=== PATIENT | female | born 1995 | race Asian ===

== ENCOUNTER 2017-08-17 13:11 | Emergency (ER) | payer MEDICAID ==
--- NOTE | 2017-08-17 13:23 | ED Physician Chart ---
ED Chief Complaint/HPI - Patient Information Date Seen:: 08/17/17 Time Seen:: 13:19 Chief Complaint:: Chest tightness and wheeze History of Present Illness:: 22 yo female developed chest tightness, palpitation, lightheadedness, numbness and tingling of bilateral hands, pale toes when she was dancing for 10 minutes yesterday. She denied any fever or chills. Patient had irregular pulses. Patient reported some stress as her final exams will be next week and she had been practicing dancing a lot for her trip to [facility] next month. Patient reported heavy menstrual periods. Allergies:: Allergies Allergy/AdvReac Type Severity Reaction Status Date / Time No Known Allergies Allergy Verified 08/17/17 13:18 ED Review of Systems - Review of Systems General/Constitutional: No fever, No chills Skin: No bruising Head: No headache, Light headed Eyes: No pain ENT: No sore throat Neck: No neck pain Cardio Vascular: Chest pain (right) Pulmonary: SOB, No cough GI: No nausea, No vomiting, No diarrhea Musculoskeletal: No bone or joint pain Neurological: No focal symptoms ED Past Medical History - Past Medical History Past Medical History: No significant medical hx Social History: Non Smoker, Alcohol, No Drug Use Surgical History: None Family Medical History - Family Member Grandfather Hx Family Coronary Artery Disease: Yes (Paternal grandfather) ED Physical Exam - Physical Examination General/Constitutional: Awake, Alert Head: Atraumatic Eyes: PERRL Skin: No skin lesions ENMT: Nasal exam nl Neck: No nuchal rigidity Respiratory: Clear to Auscultation Cardio Vascular: No murmur, gallop, rubs, NL S1 S2 Other Cardio Vascular comments:: IRR GI: No tenderness/rebounding/guarding Extremities: normal strength in all extremities Neuro/Psych: No focal deficits ED Labs/Radiology/EKG Results - Lab Results Results: Laboratory Last Values WBC 6.5 Th/cmm (4.8-10.8) 08/17/17 13:40 RBC 4.31 Mil/cmm (3.80-5.10) 08/17/17 13:40 Hgb 13.6 gm/dL (12-16) 08/17/17 13:40 Hct 40.3 % (41.0-60) L 08/17/17 13:40 MCV 93.6 fl (81-100) 08/17/17 13:40 MCH 31.7 pg (27.0-31.0) H 08/17/17 13:40 MCHC Differential 33.9 pg (28.0-36.0) 08/17/17 13:40 RDW 11.3 % (11.5-20.0) L 08/17/17 13:40 Plt Count 283 Th/cmm (150-400) 08/17/17 13:40 MPV 7.4 fl 08/17/17 13:40 Neutrophils % 66.0 % (40.0-80.0) 08/17/17 13:40 Lymphocytes % 27.0 % (20.0-50.0) 08/17/17 13:40 Monocytes % 5.9 % (2.0-10.0) 08/17/17 13:40 Eosinophils % 0.5 % (0.0-5.0) 08/17/17 13:40 Basophils % 0.6 % (0.0-2.0) 08/17/17 13:40 PT 11.2 SECONDS (9.5-11.5) 08/17/17 13:40 INR 1.08 (0.5-1.4) 08/17/17 13:40 PTT (Actin FS) 30.1 SECONDS (26.0-38.0) 08/17/17 13:40 Sodium 135 mEq/L (136-145) L 08/17/17 13:40 Potassium 3.7 mEq/L (3.5-5.1) 08/17/17 13:40 Chloride 104 mEq/L (98-107) 08/17/17 13:40 Carbon Dioxide 24.7 mEq/L (21.0-31.0) 08/17/17 13:40 Anion Gap 10.0 (7.0-16.0) 08/17/17 13:40 BUN 10 mg/dL (7-25) 08/17/17 13:40 Creatinine 0.7 mg/dL (0.6-1.2) 08/17/17 13:40 Est GFR ( Amer) > 60.0 ml/min (>90) 08/17/17 13:40 Est GFR (Non-Af Amer) > 60.0 ml/min 08/17/17 13:40 BUN/Creatinine Ratio 14.3 08/17/17 13:40 Glucose 92 mg/dL (70-105) 08/17/17 13:40 Calcium 9.2 mg/dL (8.6-10.3) 08/17/17 13:40 Total Bilirubin 0.5 mg/dL (0.3-1.0) 08/17/17 13:40 AST 16 U/L (13-39) 08/17/17 13:40 ALT 9 U/L (7-52) 08/17/17 13:40 Alkaline Phosphatase 45 U/L (34-104) 08/17/17 13:40 Troponin I < 0.01 ng/mL (0.01-0.05) L 08/17/17 13:40 B-Natriuretic Peptide 9.1 pg/mL (5.0-100.0) 08/17/17 13:40 Total Protein 7.2 gm/dL (6.0-8.3) 08/17/17 13:40 Albumin 4.4 gm/dL (3.7-5.3) 08/17/17 13:40 Globulin 2.8 gm/dL 08/17/17 13:40 Albumin/Globulin Ratio 1.6 (1.0-1.8) 08/17/17 13:40 Triglycerides 36 mg/dL (<150) 08/17/17 13:40 Cholesterol 124 mg/dL (<200) 08/17/17 13:40 LDL Cholesterol Direct 54 mg/dL (75-193) L 08/17/17 13:40 HDL Cholesterol 62 mg/dL (23-92) 08/17/17 13:40 TSH 0.66 uIU/ml (0.34-5.60) 08/17/17 13:40 Urine Source RANDOM 08/17/17 13:45 Urine Color YELLOW 08/17/17 13:45 Urine Clarity SLIGHT CLOUDY (CLEAR) H 08/17/17 13:45 Urine pH 7.0 (4.6 - 8.0) 08/17/17 13:45 Ur Specific [place] 1.015 (1.005-1.030) 08/17/17 13:45 Urine Protein NEGATIVE mg/dL (NEGATIVE) 08/17/17 13:45 Urine Glucose (UA) NEGATIVE mg/dL (NEGATIVE) 08/17/17 13:45 Urine Ketones NEGATIVE mg/dL (NEGATIVE) 08/17/17 13:45 Urine Blood NEGATIVE (NEGATIVE) 08/17/17 13:45 Urine Nitrate NEGATIVE (NEGATIVE) 08/17/17 13:45 Urine Bilirubin NEGATIVE (NEGATIVE) 08/17/17 13:45 Urine Urobilinogen 0.2 E.U./dL (0.2 - 1.0) 08/17/17 13:45 Ur Leukocyte Esterase MODERATE (NEGATIVE) H 08/17/17 13:45 Urine RBC 0-2 /hpf (0-5) 08/17/17 13:45 Urine WBC 6-10 /hpf (0-5) H 08/17/17 13:45 Ur Epithelial Cells MODERATE /lpf (FEW) 08/17/17 13:45 Urine Bacteria OCCASIONAL /hpf (NONE SEEN) 08/17/17 13:45 POC Ur Test Negative 08/17/17 13:43 Urine Opiates Screen NEGATIVE (NEGATIVE) 08/17/17 13:45 Urine Methadone Screen NEGATIVE (NEGATIVE) 08/17/17 13:45 Ur Barbiturates Screen NEGATIVE (NEGATIVE) 08/17/17 13:45 Ur Tricyclics Screen NEGATIVE (NEGATIVE) 08/17/17 13:45 Ur Phencyclidine Scrn NEGATIVE (NEGATIVE) 08/17/17 13:45 Amphetamines Screen NEGATIVE (NEGATIVE) 08/17/17 13:45 U Methamphetamines Scrn NEGATIVE (NEGATIVE) 08/17/17 13:45 U Benzodiazepines Scrn NEGATIVE (NEGATIVE) 08/17/17 13:45 U Cocaine Metab Screen NEGATIVE (NEGATIVE) 08/17/17 13:45 U Cannabinoids Screen NEGATIVE (NEGATIVE) 08/17/17 13:45 - Radiology Results Results: CXR: no acute abnormalities - EKG Interpretations EKG Time:: 13:26 Rate & Rhythm: 80bpm, sinus rhythm [place]: normal P axis Intervals: W[place] 156, QRSD 83, QT 403, QTc 465 Comments:: Trigeminy string > 6 w/ V complexes ED Assessment - Assessment General Assessment: Chest pain Abnormal EKG: Trigeminy UTI Mild hyponatremia Assessment/Comments:: CBC, CMP, Trop I, BNP, lipid panel, TSH UA, urine drug screening CXR, EKG DuoNeb breathing treatment, with some relief of chest tightness Bactrim DS PO D/c home per patient's request F/u PCP and claims investigator, return to ER if symptoms worsen ED Septic Shock - . Is Septic Shock (SBP<90, OR Lactate>4 mmol\L) present?: No ED Reassessment (Disposition) - Reassessment Reassessment Condition:: Improved - Patient Disposition Discharge/Transfer:: Home ED Discharge Plan - Patient Disposition Admit/Discharge/Transfer: PT DISCHARGED HOME Condition at Disposition: Stable Instructions: Urinary Tract Infection, [id number] Additional Instructions: Follow up with PCP and Shoe Sprayer in 24-48 hours. Return to ED if condition worsens.
[2017-08-17] MEDS ORDERED: Albuterol/Ipratropium Neb 3 ML AERS HHN ONE ×2 (13:28→13:29)
[2017-08-17 13:49] LABS: % BASOPHILS 0.6 % (0.0-2.0); % EOSINOPHILS 0.5 % (0.0-5.0); % MONOCYTES 5.9 % (2.0-10.0); HEMATOCRIT 40.3 % (41.0-60); HEMOGLOBIN 13.6 gm/dL (12-16); LYMPHOCYTE ABSOLUTE 1.8 Th/cmm (1.5-3.0); MEAN CELL VOLUME 93.6 fl (81-100); MEAN CORPUSCULAR HEMOGLOBIN 31.7 pg (27.0-31.0); MEAN CORPUSCULAR HGB CONC 33.9 pg (28.0-36.0); MEAN PLATELET VOLUME 7.4 fl; MONOCYTE ABSOLUTE 0.4 Th/cmm (0.3-1.0); NEUTROPHILE ABSOLUTE 4.3 Th/cmm (1.8-8.0); PLATELET COUNT 283 Th/cmm (150-400); RED BLOOD COUNT 4.31 Mil/cmm (3.80-5.10); RED CELL DISTRIBUTION WIDTH 11.3 % (11.5-20.0); WHITE BLOOD COUNT 6.5 Th/cmm (4.8-10.8)
[2017-08-17 13:51] LABS: URINE MICROSCOPIC INDICATED? YES; URINE SOURCE RANDOM
[2017-08-17 13:57] LABS: URINE BILIRUBIN NEGATIVE (NEGATIVE); URINE BLOOD NEGATIVE (NEGATIVE); URINE GLUCOSE (UA) NEGATIVE (NEGATIVE); URINE KETONE NEGATIVE (NEGATIVE); URINE LEUKOCYTE ESTERASE MODERATE (NEGATIVE); URINE NITRATE NEGATIVE (NEGATIVE); URINE PROTEIN NEGATIVE (NEGATIVE); URINE UROBILINOGEN 0.2 E.U./dL (0.2 - 1.0)
[2017-08-17 14:04] LABS: INR 1.08 (0.5-1.4); PROTHROMBIN TIME (TEST) 11.2 SECONDS (9.5-11.5)
[2017-08-17 14:09] LABS: URINE CLARITY SLIGHT CLOUDY (CLEAR); URINE COLOR YELLOW
[2017-08-17 14:10] LABS: URINE BACTERIA OCCASIONAL /hpf (NONE SEEN); URINE EPITHELIAL CELLS MODERATE /lpf (FEW); URINE RBC 0-2 /hpf (0-5)
--- NOTE | 2017-08-17 14:13 | Diagnostic Imaging Report ---
CHEST X-RAY: AP view INDICATION: pain COMPARISON: None FINDINGS: There is no focal consolidation or pleural effusions The heart is normal in size. The osseous structures demonstrate no acute abnormalities. IMPRESSION: No acute cardiopulmonary disease.
[2017-08-17 14:15] LABS: ALB/GLOB RATIO 1.6 (1.0-1.8); ALBUMIN 4.4 gm/dL (3.7-5.3); ALKALINE PHOSPHATASE 45 U/L (34-104); BILIRUBIN,TOTAL 0.5 mg/dL (0.3-1.0); BUN - UREA NITROGEN 10 mg/dL (7-25); CALCIUM SERUM 9.2 mg/dL (8.6-10.3); CARBON DIOXIDE 24.7 mEq/L (21.0-31.0); CHLORIDE 104 mEq/L (98-107); CHOLESTEROL 124 mg/dL (<200); CREATININE - SERUM 0.7 mg/dL (0.6-1.2); GFR AFRICAN-AMERICAN > 60.0 ml/min (>90); GFR NON AFRICAN-AMERICAN > 60.0 ml/min; GLUCOSE 92 mg/dL (70-105); HDL -HIGH DENSITY LIPOPROTEIN 62 mg/dL (23-92); POTASSIUM SERUM 3.7 mEq/L (3.5-5.1); SGOT 16 U/L (13-39); SGPT/ALT 9 U/L (7-52); SODIUM SERUM 135 mEq/L (136-145); TOTAL PROTEIN,SERUM 7.2 gm/dL (6.0-8.3); TRIGLYCERIDES 36 mg/dL (<150)
[2017-08-17 14:38] LABS: AMPHETAMINE URINE NEGATIVE (NEGATIVE); BARBITURATES URINE NEGATIVE (NEGATIVE); BENZODIAZEPINES QUAL URINE NEGATIVE (NEGATIVE); CANNABINOID THC NEGATIVE (NEGATIVE); COCAINE METABOLITE QUAL URINE NEGATIVE (NEGATIVE); METHADONE URINE NEGATIVE (NEGATIVE); METHAMPHETAMINES QUAL URINE NEGATIVE (NEGATIVE); OPIATES (MORPHINE) QUAL. URINE NEGATIVE (NEGATIVE); PHENCYCLIDINE (PCP) URINE NEGATIVE (NEGATIVE); TRICYCLICS (TCA) QUAL. URINE NEGATIVE (NEGATIVE)
[2017-08-17] MEDS ORDERED: Sulfamethoxazole/TMP 800/160mg Tab PO ONE (15:01)
[2017-08-17] MEDS ORDERED: Sulfamethoxazole/TMP 800/160mg Tab ONE (15:02)
[2017-08-17 15:47] LABS: DDIMER QUANT < 100 ng/mL (100-400)
== END 2017-08-17 15:15 | disposition home or self-care (01) ==
LOC: ER 13:11
DX: N39.0 Urinary tract infection, site not specified (principal); E87.1 Hypo-osmolality and hyponatremia; R07.89 Other chest pain
CPT/HCPCS: 36415-UA; 71045-TC; 80053-TC; 80061-TC; 80307; 81001-TC; 81025-TC; 83880-TC; 84443-TC; 84484-TC; 85025-TC; 85379-TC; 85610-TC; 93005; 94640

== ENCOUNTER 2017-08-18 13:10 | Inpatient (IN) | payer MEDICAID ==
--- NOTE | 2017-08-18 13:40 | ED Physician Chart ---
ED Chief Complaint/HPI - Patient Information Date Seen:: 08/18/17 Time Seen:: 13:35 Chief Complaint:: CHEST PAIN History of Present Illness:: THIS IS A 22 YO FEMALE WITH RECURRENT CHEST PAIN ASSOCIATED WITH TIGHTNESS, TINGLE IN HER HANDS AND TOES AND IT HAS CONTINUED SINCE YESTERDAY. 22 yo female developed chest tightness, palpitation, lightheadedness, numbness and tingling of bilateral hands, pale toes when she was dancing for 10 minutes yesterday. She denied any fever or chills. Patient had irregular pulses. Patient reported some stress as her final exams will be next week and she had been practicing dancing a lot for her trip to [facility] next month. Patient reported heavy menstrual periods. SHE HAS A POSITIVE FAMILY HISTORY OF HEART PROBLEMS ON BOTH SIDES OF THE FAMILY. SHE DOES NOT SMOKE, DRINK OR USE DRUGS. SHE DENIES DIABETES, HYPERTENSION AND DENIES ANY PREVIOUS SURGERIES. Allergies:: Allergies Allergy/AdvReac Type Severity Reaction Status Date / Time No Known Allergies Allergy Verified 08/17/17 13:18 Vitals:: Vital Signs - 8 hr 08/18/17 13:30 Temp 97.9 F HR 70 RR 13 BP 112/63 O2 Sat % 100 Historian:: Patient, Family Member (MOTHER) Review:: Nurse's Note Reviewed, Old Chart Reviewed ED Review of Systems - Review of Systems General/Constitutional: No fever, No chills, No weight loss, No weakness, No diaphoresis, No edema, No loss of appetite Skin: No skin lesions, No rash, No bruising Head: No headache, No light-headedness Eyes: No loss of vision, No pain, No diplopia ENT: No earache, No nasal drainage, No sore throat, No tinnitus Neck: No neck pain, No swelling, No thyromegaly, No stiffness, No mass noted Cardio Vascular: Chest pain, Palpitations, No PND, No orthopnea, No edema Pulmonary: No SOB, No cough, No sputum, No wheezing GI: No nausea, No vomiting, No diarrhea, No pain, No melena, No hematochezia, No constipation, No hematemesis G/U: No dysuria, No frequency, No hematuria Musculoskeletal: No bone or joint pain, No back pain, No muscle pain Endocrine: No polyuria, No polydipsia Psychiatric: No prior psych history, No depression, No anxiety, No suicidal ideation Hematopoietic: No bruising, No lymphadenopathy Allergic/Immuno: No urticaria, No angioedema Neurological: No syncope, No focal symptoms, No weakness, No paresthesia, No headache, No seizure, No dizziness, No confusion, No vertigo ED Past Medical History - Past Medical History Obtainable: Yes Past Medical History: No significant medical hx Family History: Heart disease, Diabetes Melitus, HTN Social History: Non Smoker, No Alcohol, No Drug Use, Single, Lives With Parents Surgical History: None Psychiatricy History: None Medication: Reviewed Family Medical History - Family Member Grandfather History Unknown: Yes Hx Family Coronary Artery Disease: Yes (Paternal grandfather) ED Physical Exam - Physical Examination General/Constitutional: Awake, Well-developed, well-nourished, Alert, No distress, GCS 15, Non-toxic appearing, Ambulatory Head: Atraumatic Eyes: Lids, conjuctiva normal, PERRL, EOMI Skin: Nl inspection, No rash, No skin lesions, No ecchymosis, Well hydrated, No lymphadenopathy ENMT: External ears, nose nl, Nasal exam nl, Lips, teeth, gums nl Neck: Nontender, Full ROM w/o pain, No JVD, No nuchal rigidity, No bruit, No mass, No stridor Respiratory: Nl effort/Exclusion, Clear to Auscultation, No Wheeze/Rhonchi/Rales Cardio Vascular: RRR (OCCASIONAL DROPPED BEAT ), No murmur, gallop, rubs, NL S1 S2 GI: No tenderness/rebounding/guarding, No organomegaly, No hernia, Normal BS's, Nondistended, No mass/bruits, No McBurney tenderness : No CVA tenderness Extremities: No tenderness or effusion, Full ROM, normal strength in all extremities, No edema, Normal digits & nails Neuro/Psych: Alert/oriented, DTR's symmetric, Normal sensory exam, Normal motor strength, Judgement/insight normal, Mood normal, Normal gait, No focal deficits Misc: Normal back, No paraspinal tenderness ED Labs/Radiology/EKG Results - EKG Interpretations EKG Time:: 13:37 Rate & Rhythm: 67, SINUS ARRHYMIA [place]: RIGHT ED Assessment - Assessment General Assessment: CHEST PAIN IRREGULAR HEART BEAT. ED Septic Shock - . Is Septic Shock (SBP<90, OR Lactate>4 mmol\L) present?: No - <6hrs of presentation: Vital Signs: Vital Signs - 8 hr 08/18/17 13:30 Temp 97.9 F HR 70 RR 13 BP 112/63 O2 Sat % 100 ED Reassessment (Disposition) - Reassessment Reassessment Condition:: Unchanged - Diagnosis Diagnosis:: ATYPICAL CHEST PAIN ABNORMAL EKG - Patient Disposition Discharge/Transfer:: Acute Care w/in this hosp Admitted to:: Telemetry Admitting Medical Physician:: Marcio Hester ED Discharge Plan - Patient Disposition Admit/Discharge/Transfer: Acute Care w/in this hosp Condition at Disposition: Unchanged
[2017-08-18 13:41] LABS: % BASOPHILS 0.9 % (0.0-2.0); % EOSINOPHILS 0.7 % (0.0-5.0); % LYMPHOCYTES 28.9 % (20.0-50.0); % MONOCYTES 5.5 % (2.0-10.0); BASOPHILE ABSOLUTE 0.1 Th/cumm (0-0.2); HEMATOCRIT 40.2 % (41.0-60); HEMOGLOBIN 13.6 gm/dL (12-16); LYMPHOCYTE ABSOLUTE 1.8 Th/cmm (1.5-3.0); MEAN CELL VOLUME 92.6 fl (81-100); MEAN CORPUSCULAR HEMOGLOBIN 31.2 pg (27.0-31.0); MEAN CORPUSCULAR HGB CONC 33.7 pg (28.0-36.0); MEAN PLATELET VOLUME 7.3 fl; MONOCYTE ABSOLUTE 0.3 Th/cmm (0.3-1.0); NEUTROPHILE ABSOLUTE 3.9 Th/cmm (1.8-8.0); PLATELET COUNT 298 Th/cmm (150-400); RED BLOOD COUNT 4.34 Mil/cmm (3.80-5.10); RED CELL DISTRIBUTION WIDTH 11.7 % (11.5-20.0); WHITE BLOOD COUNT 6.1 Th/cmm (4.8-10.8)
[2017-08-18] MEDS ORDERED: Magnesium Hydroxide (MOM) 30 mL UDC PO PRN (13:47)
[2017-08-18] MEDS ORDERED: Albuterol/Ipratropium Neb 3 ML AERS HHN PRN (13:47)
[2017-08-18] MEDS ORDERED: guaiFENesin 200 MG/10 ML UDC PO PRN (13:50)
[2017-08-18 13:59] LABS: ALB/GLOB RATIO 1.7 (1.0-1.8); ALBUMIN 4.7 gm/dL (3.7-5.3); ALKALINE PHOSPHATASE 48 U/L (34-104); ANION GAP 10.7 (7.0-16.0); BILIRUBIN,TOTAL 0.4 mg/dL (0.3-1.0); BUN - UREA NITROGEN 9 mg/dL (7-25); CALCIUM SERUM 9.5 mg/dL (8.6-10.3); CARBON DIOXIDE 26.1 mEq/L (21.0-31.0); CHLORIDE 102 mEq/L (98-107); CREATININE - SERUM 0.8 mg/dL (0.6-1.2); GFR AFRICAN-AMERICAN > 60.0 ml/min (>90); GFR NON AFRICAN-AMERICAN > 60.0 ml/min; GLUCOSE 89 mg/dL (70-105); POTASSIUM SERUM 3.8 mEq/L (3.5-5.1); SGOT 16 U/L (13-39); SGPT/ALT 8 U/L (7-52); SODIUM SERUM 135 mEq/L (136-145); TOTAL PROTEIN,SERUM 7.5 gm/dL (6.0-8.3)
[2017-08-18 14:00] LABS: CHOLESTEROL 125 mg/dL (<200); HDL -HIGH DENSITY LIPOPROTEIN 67 mg/dL (23-92); TRIGLYCERIDES 47 mg/dL (<150)
--- NOTE | 2017-08-18 14:10 | History and Physical ---
History of Present Illness - HPI Chief Complaint: palpitation cp HPI: 22 yo [place] female, presented yesterday co cp, dx with uti, given bactrim now w palpitation no sob stressed w final mother and grandma at bedside Vital Signs: Last Vital Signs Temp 97.9 F 08/18/17 13:52 Pulse 63 08/18/17 13:52 Resp 19 08/18/17 13:52 BP 112/56 08/18/17 13:52 Pulse Ox 99 08/18/17 13:52 Past Medical History Cardiovascular: Report: No Pertinent Hx Pulmonary: Report: No Pertinent Hx REPROGRAPHICS ASSOCIATE: Report: No Pertinent Hx GI: Report: No Pertinent Hx Psych: Report: No Pertinent Hx Musculoskeletal: Report: No Pertinent Hx Rheumatologic: Report: No pertinent Hx Infectious Disease: Report: No Pertinent Hx Renal/: Report: UTI Endocrine: Report: No Pertinent Hx Dermatology: Report: No Pertinent Hx - Past Surgical History Past Surgical History: No pertinent Hx Family Medical History - Family Member Grandfather History Unknown: Yes Living Status: Still Living Hx Family Coronary Artery Disease: No Hx Family Hypertension: No Hx Family Diabetes: No Other Medical History: kidney transplant Social History Smoke: No Alcohol: Occassional Drugs: None Lives: With Family Domestic Violence: Negative - Medications Home Medications: Home Medication Medication Instructions Recorded Type Sulfamethoxazole/Trimethoprim 1 tab PO BID 08/18/17 History [Bactrim Ds Tablet] - Allergies Allergies/Adverse Reactions: Allergies Allergy/AdvReac Type Severity Reaction Status Date / Time No Known Allergies Allergy Verified 08/17/17 13:18 Review of Systems - Review of Systems Constitutional: Report: No Significant Eyes: Report: No Significant ENT: Report: No Significant Respiratory: Report: No Significant Cardiovascular: Report: Palpitations, Orthopnea Gastrointestinal: Report: No Significant Genitourinary: Report: No Significant Musculoskeletal: Report: No Significant Skin: Report: No Significant Neurological: Report: Numbness Physical Exam - Physical Exam HEENT: Report: Ears Nose Throat within normal limits Neck: Report: Within normal limits Cardiovascular Systems: Report: +s1/s2 noted, no murmurs noted, Ectopic beat noted on auscultation Respiratory: Report: Breath Sounds are within normal limits Abdomen: Report: Non-tender to palpation Back: Report: Inspection of back is within normal limits. Extremities: Report: Non-tender to palpation. Skin: Report: Color of skin is within normal limits Neuro/Psych: Report: Mood affect is within normal limits - Lab Results All Lab Results last 24 hours: Laboratory Results - last 24 hr 08/18/17 08/18/17 08/18/17 13:30 13:30 13:30 WBC 6.1 RBC 4.34 Hgb 13.6 Hct 40.2 L MCV 92.6 MCH 31.2 H MCHC Differential 33.7 RDW 11.7 Plt Count 298 MPV 7.3 Neutrophils % 64.0 Lymphocytes % 28.9 Monocytes % 5.5 Eosinophils % 0.7 Basophils % 0.9 Sodium 135 L Potassium 3.8 Chloride 102 Carbon Dioxide 26.1 Anion Gap 10.7 BUN 9 Creatinine 0.8 Est GFR ( Amer) > 60.0 Est GFR (Non-Af Amer) > 60.0 BUN/Creatinine Ratio 11.3 Glucose 89 Calcium 9.5 Total Bilirubin 0.4 AST 16 ALT 8 Alkaline Phosphatase 48 Total Protein 7.5 Albumin 4.7 Globulin 2.8 Albumin/Globulin Ratio 1.7 Triglycerides 47 Cholesterol 125 LDL Cholesterol Direct 44 L HDL Cholesterol 67 - Assessment Assessment: palpitation ho uti - Plan Plan: will do cardiac wo 2d echo will refer to card admit
[2017-08-18] MEDS: D5-0.9%NS 1,000 ML IV SCH (15:20)
[2017-08-19 01:45] LABS: URINE MICROSCOPIC INDICATED? YES; URINE SOURCE CLEAN C
[2017-08-19 01:46] LABS: URINE BILIRUBIN NEGATIVE (NEGATIVE); URINE BLOOD NEGATIVE (NEGATIVE); URINE GLUCOSE (UA) NEGATIVE (NEGATIVE); URINE KETONE NEGATIVE (NEGATIVE); URINE LEUKOCYTE ESTERASE MODERATE (NEGATIVE); URINE NITRATE NEGATIVE (NEGATIVE); URINE PH 6.5 (4.6 - 8.0); URINE PROTEIN NEGATIVE (NEGATIVE); URINE UROBILINOGEN 0.2 E.U./dL (0.2 - 1.0)
[2017-08-19 02:13] LABS: URINE CLARITY CLEAR (CLEAR); URINE COLOR YELLOW
[2017-08-19 02:15] LABS: URINE BACTERIA FEW /hpf (NONE SEEN); URINE EPITHELIAL CELLS FEW /lpf (FEW); URINE RBC 0-2 /hpf (0-5)
[2017-08-19] MEDS: D5-0.9%NS 1,000 ML IV SCH (02:30)
--- NOTE | 2017-08-19 06:29 | Consultation ---
DATE OF CONSULTATION: 08/18/2017 HISTORY OF PRESENT ILLNESS: This 22-year-old female was seen and examined at the courtesy of Dr. Hester. The patient was admitted through Emergency Room. She was brought to the Emergency Room with history of chest pressure, tightness that resolved. The patient does not have any history of diabetes. No history of hypertension. No history of hyperlipidemia. No history of any heart problem in the past. No history of any dizziness. No history of syncope, no history of seizures, no history of cough, no history of fever, no history of hemoptysis, no history of abdominal pain. No history of nausea or vomiting. No history of hematemesis. No history of melena, no history of bleeding per rectum. No history of change in bowel habits. No history of swelling over the legs. No history of intermittent claudication. No history of phlebitis. PAST MEDICAL HISTORY: Usual childhood diseases. No history of rheumatic fever. No scarlet fever. Other past history is not significant. FAMILY HISTORY: Grandfather has heart problem. SOCIAL HISTORY: She is not a smoker. Drinks socially occasionally. ALLERGIES: No allergies. PHYSICAL EXAMINATION: VITAL SIGNS: Heart rate was 66, blood pressure was 122/70. SKIN: Normal. HEAD: Normocephalic. EYES: Conjunctivae were pink. There is no icterus in the eyes. Pupils reacting to light. NECK: There was no increased jugular venous distention, no thyromegaly, no lymphadenopathy. Carotids equal, both sides. CHEST: Bilaterally symmetrical, moved well with respiration. Respiratory movements equal, both sides. Trachea is central. There is note to percussion. Breath sounds, no rales, no rhonchi. CARDIOVASCULAR SYSTEM: PMI not well localized. There is no pulsation or thrill. No parasternal heave. S1 normal, S2 physiologic. There was no S3, no rub. ABDOMEN: Soft. No tenderness, no rigidity, no guarding, no organomegaly. Bowel sounds normal. CENTRAL NERVOUS SYSTEM: Grossly unremarkable. EXTREMITIES: There was no edema, no calf tenderness. Peripheral pulses okay. LABORATORY DATA: EKG shows sinus rhythm, normal axis. Echocardiogram showed ejection fraction 65% to 70%. Right ventricular systolic pressure 20.3. There was no pericardial effusion. Urinalysis was unremarkable. Sodium was 135, potassium 3.8, chloride 102, CO2 26.1, glucose 89, BUN 9, creatinine 0.8. Liver function tests are normal. Cholesterol was 125, triglycerides 47, HDL 67, LDL 44. First troponin was less than 0.01. IMPRESSION: Chest pain, etiology to be determined; however, rule out myocardial injury. So far, her EKG looks normal. Echocardiogram was unremarkable. We will get serial troponins 2 more times. Her cholesterol has been normal. We will also repeat EKG in a.m. Discussed with RN. We will follow. JOB# [id number]
--- NOTE | 2017-08-19 08:12 | Discharge Summary ---
General Discharge Summary - Discharge Summary Date of Admission: 08/18/17 Admitting Diagnosis: palpitation Laboratory Findings: Laboratory Results - last 24 hr 08/18/17 08/18/17 08/18/17 13:30 13:30 13:30 WBC RBC Hgb Hct MCV MCH MCHC Differential RDW Plt Count MPV Neutrophils % Lymphocytes % Monocytes % Eosinophils % Basophils % Sodium Potassium Chloride Carbon Dioxide Anion Gap BUN Creatinine Est GFR ( Amer) Est GFR (Non-Af Amer) BUN/Creatinine Ratio Glucose Calcium Total Bilirubin AST ALT Alkaline Phosphatase Troponin I < 0.01 L Total Protein Albumin Globulin Albumin/Globulin Ratio Triglycerides 47 Cholesterol 125 LDL Cholesterol Direct 44 L HDL Cholesterol 67 TSH 1.08 Urine Source Urine Color Urine Clarity Urine pH Ur Specific [place] Urine Protein Urine Glucose (UA) Urine Ketones Urine Blood Urine Nitrate Urine Bilirubin Urine Urobilinogen Ur Leukocyte Esterase Urine RBC Urine WBC Ur Epithelial Cells Urine Bacteria 08/18/17 08/18/17 08/19/17 13:30 13:30 01:35 WBC 6.1 RBC 4.34 Hgb 13.6 Hct 40.2 L MCV 92.6 MCH 31.2 H MCHC Differential 33.7 RDW 11.7 Plt Count 298 MPV 7.3 Neutrophils % 64.0 Lymphocytes % 28.9 Monocytes % 5.5 Eosinophils % 0.7 Basophils % 0.9 Sodium 135 L Potassium 3.8 Chloride 102 Carbon Dioxide 26.1 Anion Gap 10.7 BUN 9 Creatinine 0.8 Est GFR ( Amer) > 60.0 Est GFR (Non-Af Amer) > 60.0 BUN/Creatinine Ratio 11.3 Glucose 89 Calcium 9.5 Total Bilirubin 0.4 AST 16 ALT 8 Alkaline Phosphatase 48 Troponin I Total Protein 7.5 Albumin 4.7 Globulin 2.8 Albumin/Globulin Ratio 1.7 Triglycerides Cholesterol LDL Cholesterol Direct HDL Cholesterol TSH Urine Source CLEAN C Urine Color YELLOW Urine Clarity CLEAR Urine pH 6.5 Ur Specific [place] <= 1.005 Urine Protein NEGATIVE Urine Glucose (UA) NEGATIVE Urine Ketones NEGATIVE Urine Blood NEGATIVE Urine Nitrate NEGATIVE Urine Bilirubin NEGATIVE Urine Urobilinogen 0.2 Ur Leukocyte Esterase MODERATE H Urine RBC 0-2 Urine WBC 2-5 Ur Epithelial Cells FEW Urine Bacteria FEW 08/19/17 05:00 WBC RBC Hgb Hct MCV MCH MCHC Differential RDW Plt Count MPV Neutrophils % Lymphocytes % Monocytes % Eosinophils % Basophils % Sodium Potassium Chloride Carbon Dioxide Anion Gap BUN Creatinine Est GFR ( Amer) Est GFR (Non-Af Amer) BUN/Creatinine Ratio Glucose Calcium Total Bilirubin AST ALT Alkaline Phosphatase Troponin I < 0.01 L Total Protein Albumin Globulin Albumin/Globulin Ratio Triglycerides Cholesterol LDL Cholesterol Direct HDL Cholesterol TSH Urine Source Urine Color Urine Clarity Urine pH Ur Specific [place] Urine Protein Urine Glucose (UA) Urine Ketones Urine Blood Urine Nitrate Urine Bilirubin Urine Urobilinogen Ur Leukocyte Esterase Urine RBC Urine WBC Ur Epithelial Cells Urine Bacteria Hospital Course: 22 yo female, presented x 2 to er, now w palpitation admitted to tele, negative troponin seen by card, treated conservatively Condition at Discharge: Stable Disposition: PT DISCHARGED HOME Home Medications: Home Medication Medication Instructions Recorded Type Sulfamethoxazole/Trimethoprim 1 tab PO BID 08/18/17 History [Bactrim Ds Tablet] Inpatient Medications: Current Medications Acetaminophen (Tylenol) 650 mg PO Q4H PRN PRN Reason: Mild Pain/Headache/T above 101 Stop: 10/17/17 13:46 Albuterol/Ipratropium (Duoneb Neb) 3 ml HHN Q2HRT PRN PRN Reason: Shortness of Breath Stop: 10/17/17 13:46 Last Admin: 08/18/17 15:28 Dose: 3 ml Alprazolam (Xanax) 0.25 mg PO Q8H PRN; Protocol PRN Reason: Anxiety Stop: 10/17/17 14:02 Guaifenesin (Robitussin) 200 mg PO Q4H PRN PRN Reason: Cough or Congestion Stop: 10/17/17 13:49 Dextrose/Sodium Chloride (D5-0.9%Ns) 1,000 mls @ 80 mls/hr IV .[id number] DINH Stop: 10/17/17 13:59 Last Admin: 08/19/17 02:30 Dose: 80 mls/hr Magnesium Hydroxide (Milk Of Magnesia) 30 ml PO HS PRN PRN Reason: Constipation Stop: 10/17/17 13:46 Ondansetron HCl (Zofran) 4 mg IVP Q6H PRN PRN Reason: Nausea / Vomiting Stop: 10/17/17 13:46 Zolpidem Tartrate (Ambien) 5 mg PO HS PRN PRN Reason: Insomnia Stop: 10/17/17 13:46 Activity: As Tolerated Discharge Diet: 2 Gram Sodium
--- NOTE | 2017-08-20 15:56 | Cardiology ---
DATE OF SERVICE: 08/13/2017. The patient of Dr. Hester. PROCEDURE: Echocardiogram. M-MODE ECHOCARDIOGRAM: Mitral valve, anterior leaflet of mitral valve shows normal excursion, EF velocity. Posterior leaflet of mitral valve shows normal excursion. Left ventricle posterior wall shows increased thickness, normal excursion. Interventricular septum shows increased thickness, normal excursion, hypertrophy of the left ventricle, ejection fraction 68%. Left atrium normal. Aortic root shows normal dimension, normal excursion of aortic leaflets. CONCLUSION: Hypertrophy of the left ventricle, ejection fraction 65%. 2D ECHO: Long axis view showed normal sized left ventricle with hypertrophy of the left ventricle. Left atrium normal. Aortic root shows normal dimension, normal excursion of aortic leaflets. Short axis view of mitral valve normal. Short axis view of aortic valve normal. Apical 4-chamber view shows normal sized left ventricle with hypertrophy of the left ventricle. Left atrium normal. Right ventricular cavity, right atrium normal. No pericardial effusion. CONCLUSION: Hypertrophy of the left ventricle, ejection fraction 68%. Doppler study showed trace tricuspid regurgitation, trace pulmonary regurgitation. [facility]# [id number]
== END 2017-08-19 10:25 | disposition home or self-care (01) | DRG 203 ==
LOC: ER 13:10 → ICU 13:30
PROVIDERS: ADMIT Internal Medicine; ATTEND Internal Medicine
DX: M94.0 Chondrocostal junction syndrome [Tietze] (principal); R00.2 Palpitations; R07.89 Other chest pain; Z82.49 Family history of ischemic heart disease and other diseases of the circulatory system; Z83.3 Family history of diabetes mellitus; Z88.2 Allergy status to sulfonamides; Z87.440 Personal history of urinary (tract) infections; Z88.1 Allergy status to other antibiotic agents
CPT/HCPCS: 36415-UA; 80053-TC; 80061-TC; 81001-TC; 84443-TC; 84484-TC; 85025-TC; 93005; 94640; 94760; J7042; Z7610